=== PATIENT | male | born 1955 | race Caucasian/White ===

== ENCOUNTER 2019-07-05 12:54 | Emergency (ER) | payer MEDICARE, OTHER ==
[2019-07-05] MEDS ORDERED: IBUPROFEN 800 MG TABLET PO STA (13:10)
--- NOTE | 2019-07-05 13:11 | ED Physician Documentation ---
PD HPI ABD PAIN - Stated complaint Stated Complaint: MALE /BACK PX - Chief complaint Chief Complaint: Abd Pain - History obtained from History obtained from: Patient - History of Present Illness Timing - onset: Today (63-year-old gentleman with history of diabetes has had strong smelling urine that was dark today associated with intermittent right flank pain. No fevers. No history of renal colic or pyelonephritis.) Review of Systems Constitutional: denies: Fever, Chills GI: denies: Abdominal Pain, Nausea, Vomiting, Constipation, Diarrhea : reports: Dysuria, Frequency, Hesitancy PD PAST MEDICAL HISTORY - Present Medications Home Medications: Ambulatory Orders Medication Instructions Recorded Confirmed Aspirin 07/05/19 Gabapentin 07/05/19 Hydrocodone/Acetaminophen 1 - 2 each PO Q6H PRN #14 tablet 07/05/19 [Hydrocodon-Acetaminophen 5-325] Ibuprofen [Motrin] 800 mg PO Q8H PRN #30 tablet 07/05/19 Losartan [Cozaar] 07/05/19 Metoprolol Succinate [Toprol Xl] 07/05/19 Simvastatin 07/05/19 Tamsulosin [Flomax] 0.4 mg PO DAILY #14 capsule 07/05/19 metFORMIN [Glucophage] 07/05/19 raNITIdine HCl [Ranitidine HCl] 07/05/19 - Allergies Allergies/Adverse Reactions: Allergies Allergy/AdvReac Type Severity Reaction Status Date / Time lisinopril AdvReac Unknown Verified 07/05/19 13:02 PD ED PE NORMAL - Vitals Vital signs reviewed: Yes - General General: Alert and oriented X 3, No acute distress - Cardiac Cardiac: RRR, No murmur - Respiratory Respiratory: No respiratory distress, Clear bilaterally - Abdomen Abdomen: Normal bowel sounds, Soft, Non tender - Neuro Neuro: Alert and oriented X 3, Normal speech Results - Vitals Vitals: Vital Signs - 24 hr 07/05/19 07/05/19 12:59 15:26 Temperature 36.4 C L Heart Rate 80 79 Respiratory 18 18 Rate Blood Pressure 181/75 H 158/73 H O2 Saturation 98 98 Oxygen O2 Source Room air - Labs Labs: Laboratory Tests 07/05/19 07/05/19 13:15 13:45 Sodium 138 Potassium 4.3 Chloride 101 Carbon Dioxide 27 Anion Gap 10.0 BUN 18 Creatinine 1.2 Estimated GFR (MDRD) 61 L Glucose 249 H Calcium 9.8 Total Bilirubin 1.0 AST 21 ALT 21 Alkaline Phosphatase 74 Total Protein 7.5 Albumin 4.4 Globulin 3.1 Albumin/Globulin Ratio 1.4 Lipase 28 Urine Color YELLOW Urine Clarity CLEAR Urine pH 5.5 Ur Specific [place] 1.025 Urine Protein NEGATIVE Urine Glucose (UA) >=1000 H Urine Ketones NEGATIVE Urine Occult Blood LARGE H Urine Nitrite NEGATIVE Urine Bilirubin NEGATIVE Urine Urobilinogen 0.2 (NORMAL) Ur Leukocyte Esterase NEGATIVE Urine RBC 6-10 H Urine WBC 0-3 Ur Squamous Epith Cells RARE Squamous Urine Bacteria Rare Urine Mucus Few Strands Ur Microscopic Review INDICATED Urine Culture Comments NOT INDICATED - Rads (name of study) retroperiteoneal sono Radiology: Final report received (Probable right ureter stone at the UVJ causing mild hydronephrosis.) PD MEDICAL DECISION MAKING - ED course ED course: 63-year-old gentleman presents with symptoms most likely related to renal colic proven on imaging. His pain really was not very bad and only needed Motrin in the department. Departure - Departure Disposition: 01 Home, Self Care Clinical Impression: Renal colic Condition: Good Record reviewed to determine appropriate education?: Yes Instructions: ED Stone Renal W Colic Prescriptions: Hydrocodone/Acetaminophen [Hydrocodon-Acetaminophen 5-325] 1 - 2 each PO Q6H PRN #14 tablet PRN Reason: pain Ibuprofen [Motrin] 800 mg PO Q8H PRN #30 tablet PRN Reason: PAIN &/OR FEVER Tamsulosin [Flomax] 0.4 mg PO DAILY #14 capsule Comments: He can take the ibuprofen as the baseline for the pain, the hydrocodone when it severe. Flomax will hopefully help it pass faster. You have a right UVJ stone measuring 6 x 4 x 7 mm. If you are still having symptoms next week [place]
[2019-07-05 13:39] LABS: ALBUMIN 4.4 g/dL (3.2-5.5); ALBUMIN/GLOBULIN RATIO 1.4 (1.0-2.2); CALCIUM 9.8 mg/dL (8.5-10.3); CREATININE 1.2 mg/dL (0.6-1.2); TOTAL PROTEIN 7.5 g/dL (6.7-8.2)
[2019-07-05 13:54] LABS: BILIRUBIN,URINE NEGATIVE (NEGATIVE); GLUCOSE, URINE (UA) >=1000 mg/dL (NEGATIVE); KETONES,URINE (UA) NEGATIVE (NEGATIVE); LEUKOCYTE ESTERASE, URINE NEGATIVE (NEGATIVE); NITRITE,URINE NEGATIVE (NEGATIVE); OCCULT BLOOD,URINE LARGE (NEGATIVE); PH,URINE 5.5 PH (5.0-7.5); PROTEIN,URINE NEGATIVE (NEGATIVE); UROBILINOGEN,URINE 0.2 (NORMAL) E.U./dL (NORMAL)
[2019-07-05 13:55] LABS: CLARITY,URINE CLEAR (CLEAR)
[2019-07-05 14:49] LABS: BACTERIA,URINE Rare /HPF (None Seen); MUCUS,URINE Few Strands; SQUAMOUS EPITHELIAL CELL,UR RARE Squamous (<= Few)
--- NOTE | 2019-07-05 15:39 | Ultrasound Report ---
Reason: R flank pain Procedure Date: 07/05/2019 Accession Number: [id number] / [id number] Procedure: US - Retroperitoneal Limited CPT Code: FULL RESULT: EXAM: RENAL ULTRASOUND EXAM DATE: 07/05/2019 03:19 PM. CLINICAL HISTORY: R flank pain. COMPARISON: None available. TECHNIQUE: Real-time scanning was performed with static images obtained. FINDINGS: Right Kidney: 13.2 x 5.5 x 7.3 cm. There is mild hydroureteronephrosis, which appears to be secondary to echogenic, faintly shadowing stone at the right ureterovesical junction measuring 6 x 4 x 7 mm. Left Kidney: Not imaged. Bladder: The right ureter jet was not visualized. The left ureter jet was seen. Bladder volumes not recorded. Other: None. IMPRESSION: Probable distal right ureter stone at the right ureterovesical junction causing mild hydroureteronephrosis. Alternatively, this could represent changes from a Deflux injection procedure. Clinical correlation recommended. [facility]IA
[2019-07-05 15:58] VITALS: BP 159/71
== END 2019-07-05 15:57 | disposition home or self-care (01) ==
LOC: ED 12:54
DX: N13.2 Hydronephrosis with renal and ureteral calculous obstruction (principal); E11.9 Type 2 diabetes mellitus without complications; Z79.84 Long term (current) use of oral hypoglycemic drugs; Z79.82 Long term (current) use of aspirin
CPT/HCPCS: 36415; 76775; 80053; 81001; 83690; 99283; 99284; A9270; 80048; 81003; 87086

== ENCOUNTER 2022-01-04 08:02 | Outpatient (CLI) | payer MEDICARE, OTHER ==
--- NOTE | 2022-01-05 07:53 | DEXA Report ---
PROCEDURE: Dexa Spine and/or Hip INDICATIONS: PRIMARY HYPERPARATHYROIDISM TECHNIQUE: Dual energy x-ray absorptiometry (DXA) was performed on a [employer] System. Regions measur ed are the AP Spine, femoral neck, and if needed forearm. COMPARISON: None. FINDINGS: Lumbar Spine: Bone Mineral Density 1.458 g/cm/cm,T score 2.0. Left Hip: Bone Mineral Density 1.063 g/cm/cm,T score -0.3. Left Femoral Neck: Bone Mineral Density 0.835 g/cm/cm, T score -1.8. Left forearm: Bone Mineral Density 0.991 g/cm/cm, T score 0.0. (T score greater or equal to -1.0: NORMAL) (T score from -1.1 to -2.4: OSTEOPENIA) (T score less than or equal to -2.5 to: OSTEOPOROSIS) Impression: Osteopenia Patients with diagnosis of osteoporosis or osteopenia should have regular bone mineral density assess ment. For those eligible for Medicare, routine testing is allowed once every 2 years. Testing frequ ency can be increased for patients who have rapidly progressing disease or for those who are receivin g medical therapy to restore bone mass. Reviewed by: Zachery Lynch MD on 01/05/2022 7:52 AM PDT Approved by: Zachery Lynch MD on 01/05/2022 7:52 AM PDT Station ID: [id number]
== END 2022-01-04 08:03 | disposition home or self-care (01) ==
LOC: DI 08:02
PROVIDERS: ATTEND Physician Assistant
DX: M85.88 Other specified disorders of bone density and structure, other site (principal); E21.0 Primary hyperparathyroidism; E83.52 Hypercalcemia

== ENCOUNTER 2023-09-08 10:34 | Outpatient (CLI) | payer MEDICARE, OTHER ==
--- NOTE | 2023-09-08 16:34 | XRAY Report ---
PROCEDURE: Lumbar Spine 2 View INDICATIONS: LOW BACK PAIN TECHNIQUE: 3 views of the lumbar spine were acquired. COMPARISON: None. FINDINGS: Bones: 5 [id number] vertebrae are present. There is normal bony alignment. No vertebral body compression fractures. No suspicious bony lesions. Multilevel disc space narrowing and endplate ost eophyte formation, as well as facet hypertrophy. Soft tissues: Overlying bowel gas pattern is normal. No suspicious soft tissue calcifications. IMPRESSION: Multilevel degenerative disc and facet disease. No acute fracture. No osseous lesion. If symptoms and/or clinical suspicion for pathology continue, further assessment with repeat plain films , or advanced imaging (e.g., CT, MRI, or bone scan) is recommended for further assessment. Reviewed by: Reanna Ugalde MD on 09/08/2023 4:33 PM PST Approved by: Reanna Ugalde MD on 09/08/2023 4:33 PM PST Station ID: [id number]
== END 2023-09-08 10:35 | disposition home or self-care (01) ==
LOC: DI 10:34
PROVIDERS: ATTEND Physician Assistant
DX: M47.816 Spondylosis without myelopathy or radiculopathy, lumbar region (principal); M51.36 Other intervertebral disc degeneration, lumbar region